=== PATIENT | male | born 1945 | race Caucasian/White ===

== ENCOUNTER 2019-01-24 13:15 | Emergency (ER) | payer MEDICARE, BC ==
[2019-01-24] MEDS ORDERED: ACETAMINOPHEN 1,000 MG/100 ML BTL IVPB ONE (13:34)
--- NOTE | 2019-01-24 13:39 | Emergency Department Record ---
History of Present Illness - General Chief Complaint: Abdominal Pain Stated Complaint: RT ABN PAIN Time Seen by Provider: 01/24/19 13:27 Source: Patient Mode of Arrival: Ambulatory Limitations: No limitations - History of Present Illness Initial Comments: 73 yo male presents with right sided pain. He states the pain was mild started 2-3 days ago over the lower right flank. It has been in the right lower back radiates to the right lower quadrant. The pain has intensified today. No fever. No hematuria. It seems to feel better moving around but no position of comfort seems to make it better. No vomiting or diarrhea. The pain remains only on the right and no pain on the left. No rash. NO fever. Normal appetite. It is sore to push on the deep lower right lumbar area. No history of the same in the past. MD Complaint: Abdominal pain, Flank pain Onset/Timin -: Days(s) Location: RLQ Radiation: None Severity: Moderate Severity scale (1-10): 8 Quality: Aching, Cramping Consistency: Constant, Intermittent Improves With: Movement Worsens With: Nothing Context: Other Associated Symptoms: Denies other symptoms - Related Data Home Medications Medication Instructions Recorded Confirmed Last Taken Aspirin [Aspirin EC] 81 mg PO DAILY 01/24/19 01/24/19 1 Day Ago ~01/23/19 Previous Rx's Medication Instructions Recorded Cephalexin [Keflex] 500 mg PO QID #28 cap 01/24/19 Hydrocodone/Acetaminophen [[place] 1 tab PO Q6H PRN #8 tab 01/24/19 5mg/325mg] Allergies Allergy/AdvReac Type Severity Reaction Status Date / Time No Known Drug Allergies Allergy Verified 01/24/19 13:24 Travel Screening - Travel/Exposure Within Last 30 Days Have you traveled within the last 30 days?: No - Travel/Exposure Within Last Year Have you traveled outside the [place] in the last year?: No - Additonal Travel Details Have you been exposed to anyone with a communicable illness?: No - Travel Symptoms Symptom Screening: None Review of Systems Constitutional: Denies: Chills, Fever, Malaise, Weakness Eyes: Denies: Eye discharge, Eye pain, Photophobia, Vision change ENT: Denies: Congestion, Throat pain Respiratory: Denies: Cough, Dyspnea Cardiovascular: Denies: Chest pain, Palpitations, Syncope Endocrine: Denies: Fatigue Gastrointestinal: Reports: Abdominal pain. Denies: Diarrhea, Nausea, Vomiting Genitourinary: Denies: Dysuria, Frequency, Hematuria Musculoskeletal: Denies: Arthralgia, Back pain, Joint swelling, Myalgia Skin: Denies: Bruising, Change in color, Rash Neurological: Denies: Headache Psychiatric: Denies: Anxiety Hematological/Lymphatic: Denies: Easy bleeding, Easy bruising Past Medical History - SOCIAL HISTORY Smoking Status: Former smoker Alcohol Use: Rare, Occasional Drug Use: None - RESPIRATORY Hx Respiratory Disorders: No - CARDIOVASCULAR Hx Cardio Disorders: No - NEURO Hx Neuro Disorders: No - GI Hx GI Disorders: Yes Hx Diverticulitis: Yes Hx of Polyps: Yes - Hx Genitourinary Disorders: No - ENDOCRINE Hx Endocrine Disorders: No - MUSCULOSKELETAL Hx Musculoskeletal Disorders: No - PSYCH Hx Psych Problems: No - HEMATOLOGY/ONCOLOGY Hx Hematology/Oncology Disorders: No Family Medical History Any Significant Family History?: Yes Physical Exam - General General Appearance: Alert, Oriented x3, Cooperative, No acute distress Limitations: No limitations - Head Head exam: Atraumatic, Normal inspection - Eye Eye exam: Normal appearance, PERRL. negative: Conjunctival injection, Scleral icterus - ENT ENT exam: Normal exam, Mucous membranes moist Ear exam: Normal external inspection Nasal Exam: Normal inspection Mouth exam: Normal external inspection - Neck Neck exam: Normal inspection - Respiratory Respiratory exam: Normal lung sounds bilaterally. negative: Respiratory distress - Cardiovascular Cardiovascular Exam: Regular rate, Normal rhythm, Normal heart sounds Peripheral Pulses: 2+: Radial (R), Radial (L) - GI/Abdominal GI/Abdominal exam: Soft, Tenderness (mildly tender in the deep RLQ, no mass, no hernia). negative: Distended, Guarding, Rebound, Rigid - Rectal Rectal exam: Deferred - exam: Deferred - Extremities Extremities exam: Normal inspection. negative: Pedal edema, Tenderness - Back Back exam: Reports: CVA tenderness (R), Full ROM, Paraspinal tenderness, Tenderness. Denies: Normal inspection, CVA tenderness (L), Rash noted, Vert ebral tenderness - Neurological Neurological exam: Alert, Normal gait, Oriented X3 - Psychiatric Psychiatric exam: Normal affect, Normal mood. negative: Agitated, Anxious - Skin Skin exam: Dry, Intact, Normal color, Warm Course Vital Signs 01/24/19 13:17 Temperature 98.1 F Pulse Rate 58 L Respiratory 18 Rate Blood Pressure 196/96 Pulse Ox 99 - Reevaluation(s) Reevaluation #1: Vitals reviewed. No fever. BP elevated. The patient is pacing in the room stating right lower back hurts radiating around 01/24/19 14:22 The CBC is normal The CMP is normal The UA is N+, LE-, WBC-, RBC-, Few bacteria 01/24/19 14:[address] scan was reviewed. No renal stones. No inflammatory changes. The appendix is not well seen but no signs of acute appendicitis. Diverticulosis without diverticulitis. 01/24/19 14:59 The results were discussed with the pain. He does not have fever, abnormal labs, or CT evidence of the cause. He does NOT have any peritoneal signs to suggest appendicitis. There is no renal stone identified. He clinically resembles colic like pain with his pacing but he can point to specific area in the right lower back that is sore to touch. I explained that there is not a definite cause of the pain with the testing. He will be treated for his pain. He was advised to return to the ER in the next 12-24 hours if the pain is not gone. I recommend returning sooner if he has vomiting, fever, or worsening pain. He does have bacteria and N+ urine. This will be cultured and he will be placed on an antibiotic until cultures return. 01/24/19 15:03 The patient reports good control of his pain. He is very reliable. He understands the need to recheck in the next 12-24 hours if not improving and sooner if fever, uncontrolled pain or vomiting or any other new concerns 01/24/19 15:16 Medical Decision Making - Lab Data Result diagrams: 01/24/19 13:31 01/24/19 13:31 Disposition Disposition: Discharge Clinical Impression: Right flank pain, Right lateral abdominal pain Disposition: Home, Self-Care Condition: (1) Good Instructions: Abdominal Pain (ED), Flank Pain (ED) Additional Instructions: Return to the ER in the next 12-24 hours if you are not steadily improving Return immediately if you have a fever, vomit, or have sudden increase in pain that is not controlled Call your doctor for a recheck of the labs, urine culture, and to review your CT scan Prescriptions: Cephalexin [Keflex] 500 mg PO QID #28 cap Hydrocodone/Acetaminophen [[place] 5mg/325mg] 1 tab PO Q6H PRN #8 tab PRN Reason: Pain - General Forms: Patient Portal Access Time of Disposition: 15:17 Quality - Quality Measures Quality Measures: N/A - Blood Pressure Screening Does Patient Have Any of the Following: No Blood Pressure Classification: Hypertensive Reading Systolic Measurement: 196 Diastolic Measurement: 96 Screening for High Blood Pressure: < Pre-Hypertensive BP, F/U Documented > [G8950] Pre-Hypertensive Follow-up Interventions: Referral to alternative/primary care provider.
[2019-01-24 13:46] LABS: ABSOLUTE NEUTROPHIL COUNT 5.39; BASO % 0.4 % (0-6); EOS % 1.3 % (0-6); GRAN % 72.4 % (47-80); HEMATOCRIT 47.4 % (42.0-52.0); HEMOGLOBIN 15.7 gm/dl (14.0-18.0); LYMPH % 18.7 % (16-45); MEAN CELL VOLUME 88.4 fl (81-97); MEAN CORPUSCULAR HEMOGLOBIN 29.3 pg (27-33); MEAN CORPUSCULAR HGB CONC 33.1 g/dl (32-36); MEAN PLATELET VOLUME 10.9 fl (7.4-10.4); MONO % 7.2 % (0-9); PLATELET COUNT 250 K/uL (130-400); RED BLOOD COUNT 5.36 M/uL (4.40-5.70); RED CELL DISTRIBUTION WIDTH 13.2 % (11.5-14.5); WHITE BLOOD COUNT W/O DIFF 7.5 K/uL (4.2-12.2)
[2019-01-24 13:51] LABS: URINE APPEARANCE CLEAR; URINE BILIRUBIN NEGATIVE (NEGATIVE); URINE BLOOD NEGATIVE (NEGATIVE); URINE COLOR YELLOW; URINE GLUCOSE (UA) NEGATIVE (NEGATIVE); URINE KETONE NEGATIVE (NEGATIVE); URINE LEUKOCYTE ESTERASE NEGATIVE (NEGATIVE); URINE NITRITE POSITIVE (NEGATIVE); URINE PROTEIN NEGATIVE (NEGATIVE); URINE UROBILINOGEN 0.2 E.U./dL (0.20 - 1.00)
[2019-01-24 13:57] LABS: BLOOD UREA NITROGEN 19 mg/dL (8-23); EST GLOMERULAR FILTRATION RATE > 60 mL/min
[2019-01-24 13:58] LABS: TOTAL PROTEIN 7.4 g/dL (6.6-8.7)
[2019-01-24 14:00] LABS: GLUCOSE,RANDOM 111 mg/dL (74-109)
[2019-01-24 14:01] LABS: URINE BACTERIA FEW; URINE EPITHELIAL CELLS NONE SEEN (FEW); URINE RBC NONE SEEN (NONE SEEN); URINE WBC NONE SEEN (0-2/hpf)
[2019-01-24 14:03] LABS: ALB/GLOB RATIO 1.7 (1.1-1.8); ALBUMIN 4.7 g/dL (4.0-5.0); ALKALINE PHOSPHATASE 53 U/L (40-129); ALT/SGPT 14 U/L (<41); AST/SGOT 21 U/L (10.0-50.0)
[2019-01-24] MEDS ORDERED: KETOROLAC 30 MG/ML VIAL IVP ONE (14:21)
[2019-01-24] MEDS ORDERED: MORPHINE SULFATE 5 MG/ML VIAL IVP ONE (14:43)
--- NOTE | 2019-01-24 14:48 | CT SCAN REPORT ---
EXAMINATION: CT Abdomen and Pelvis without IV Contrast EXAM DATE: 01/24/2019 1:59 PM TECHNIQUE: Standard protocol CT imaging of the abdomen and pelvis was performed without intravenous c ontrast. INDICATION: right flank and lower pain right pain COMPARISON: CT abdomen there are 4 2015 ENCOUNTER: Not applicable CT ABDOMEN AND PELVIS FINDINGS: Lung Bases: Included extent of the lung bases are clear. Hepatobiliary: The liver has a normal size with a smooth surface. The gallbladder appears normal wit hout evidence of gallstones or gallbladder wall thickening. Pancreas: The pancreas is normal. Spleen: The spleen is not enlarged. Adrenals: The adrenal glands are normal. Kidneys, Ureters, & Bladder: Both kidneys have a normal size and morphology. There is no hydronephro sis. No renal stones are seen. Both ureters have a normal course and caliber and the urinary bladder a normal morphology and uniform wall thickness. No ureteral or bladder calculi are identified. Gastrointestinal: The stomach and small bowel are normal with no obstruction or inflammation. The junaid endix is not well seen. No evidence of acute appendicitis. Moderate sigmoid diverticulosis. No eviden ce of acute diverticulitis. Mild diverticula are seen throughout the remainder of the colon. Reproductive Organs: Unremarkable Lymphatic System: There is no adenopathy within the abdomen or pelvis. Vasculature: Normal caliber abdominal aorta Peritoneum: No free fluid, free air, or inflammation Abdominal wall & Musculoskeletal: No suspicious bone lesions. 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 Multilevel degenerative changes are noted in the lower thoracic an d lumbar spine. Assessment of the solid organs, soft tissues, and vascular structures is overall limited on noncontra st imaging, IMPRESSION: 1. No suspicious renal or ureteral stones. 2. No evidence of hydronephrosis on either side. 3. Moderate sigmoid diverticulosis. No evidence of acute diverticulitis. 4. No free air or free fluid. Dictated by: Alvin Rhoades MD on 01/24/2019 2:34 PM. .
[2019-01-24] MEDS ORDERED: CEFTRIAXONE 1GM/50ML BAG 1 GM/50 ML BAG IVPB ONE (15:03)
[2019-01-24] MEDS ORDERED: HYDROCODONE/APAP 5/325MG TABLET PO ONE (15:12)
== END 2019-01-24 16:43 | disposition home or self-care (01) ==
LOC: ER 13:15
DX: R10.31 Right lower quadrant pain (principal); R20.0 Anesthesia of skin; M54.5 Low back pain
CPT/HCPCS: 74176; 80053; 81001; 85025; 96365; 96366; 96375; 99284; J0696; J1885

== ENCOUNTER 2019-01-26 01:27 | Emergency (ER) | payer MEDICARE, BC ==
[2019-01-26] MEDS ORDERED: 0.9 % SODIUM CHLORIDE 1000ML 500 ML IV SCH (01:45)
[2019-01-26] MEDS ORDERED: DIAZEPAM 5 MG/1 ML TUBX IVP ONE (01:45)
--- NOTE | 2019-01-26 01:51 | Emergency Department Record ---
History of Present Illness - General Chief complaint: Pain Stated complaint: RIGHT GROIN PAIN Time Seen by Provider: 01/26/19 01:44 Source: Patient Mode of Arrival: Ambulatory Limitations: No limitations - History of Present Illness Initial comments: 73 yo male presents to ED for evaluation of worsening right inguinal pain. Patient was seen and examined yesterday for similar symptoms, CT imaging of the abdomen and pelvis was negative for an acute process. Patient reports that he is unable to sit still due to his pain symptoms. Patient denies fevers, chills, or dysuria symptoms. Patient denies swelling or redness to the affected area. Patient was discharged home on Regan and Keflex for his pain symptoms that have not improved his symptoms. MD Complaint: Other Onset/Timin -: Days(s) Location: Right, Thigh History of Same: Yes Radiation: Distal Severity scale (1-10): 10 Quality: Stabbing Consistency: Constant Improves with: Nothing Worsens with: Exertion, Walking, Other Associated Symptoms: Denies other symptoms - Related Data Previous Rx's Medication Instructions Recorded Cephalexin [Keflex] 500 mg PO QID #28 cap 01/24/19 Hydrocodone/Acetaminophen [[place] 1 tab PO Q6H PRN #8 tab 01/24/19 5mg/325mg] Allergies Allergy/AdvReac Type Severity Reaction Status Date / Time No Known Drug Allergies Allergy Verified 01/24/19 13:24 Travel Screening - Travel/Exposure Within Last 30 Days Have you traveled within the last 30 days?: No - Travel Symptoms Symptom Screening: Joint & Muscle Aches Review of Systems Constitutional: Denies: Chills, Fever, Malaise, Night sweats Eyes: Denies: Eye discharge, Eye pain ENT: Denies: Congestion, Ear pain, Epistaxis Respiratory: Denies: Cough, Dyspnea Cardiovascular: Denies: Chest pain, Dyspnea on exertion Endocrine: Denies: Fatigue, Heat or cold intolerance Gastrointestinal: Denies: Abdominal pain, Nausea, Vomiting Genitourinary: Denies: Incontinence, Retention Musculoskeletal: Denies: Arthralgia, Back pain Skin: Denies: Bruising, Change in color Neurological: Denies: Abnormal gait, Confusion, Headache, Seizure Psychiatric: Denies: Anxiety Hematological/Lymphatic: Denies: Anemia, Blood Clots Past Medical History - SOCIAL HISTORY Smoking Status: Former smoker Alcohol Use: None Drug Use: None - RESPIRATORY Hx Respiratory Disorders: No - CARDIOVASCULAR Hx Cardio Disorders: No - NEURO Hx Neuro Disorders: No - GI Hx GI Disorders: Yes Hx Diverticulitis: Yes Hx of Polyps: Yes - Hx Genitourinary Disorders: No - ENDOCRINE Hx Endocrine Disorders: No - MUSCULOSKELETAL Hx Musculoskeletal Disorders: No - PSYCH Hx Psych Problems: No - HEMATOLOGY/ONCOLOGY Hx Hematology/Oncology Disorders: No Family Medical History Any Significant Family History?: No Family Hx Comment (NOT TO BE USED IN PLACE OF ITEMS BELOW): denies Physical Exam - General General Appearance: Alert, Oriented x3, Cooperative, Moderate distress (due to patient's pain symptoms) Limitations: No limitations - Head Head exam: Atraumatic, Normocephalic, Normal inspection Head exam detail: negative: Abrasion, Contusion, Gamez's sign, General tenderness, Hematoma, Laceration - Eye Eye exam: Normal appearance. negative: Conjunctival injection, Periorbital swelling, Periorbital tenderness, Scleral icterus - ENT Ear exam: negative: Auricular hematoma, Auricular trauma Nasal Exam: negative: Active bleeding, Discharge, Dried blood, Foreign body Mouth exam: negative: Drooling, Laceration, Muffled voice, Tongue elevation - Neck Neck exam: Normal inspection. negative: Meningismus, Tenderness - Respiratory Respiratory exam: Normal lung sounds bilaterally. negative: Rales, Respiratory distress, Rhonchi, Stridor - Cardiovascular Cardiovascular Exam: Regular rate, Normal rhythm, Normal heart sounds Peripheral Pulses: 3+: Dorsalis Pedis (R) - GI/Abdominal GI/Abdominal exam: Soft, Tenderness (TTP to the right inguinal region on examination, no lymphadenopathy, no swelling to suggest directe hernia.). negative: Rebound, Rigid - Rectal Rectal exam: Deferred - exam: Deferred - Extremities Extremities exam: Normal inspection. negative: Pedal edema, Tenderness - Back Back exam: Denies: CVA tenderness (R), CVA tenderness (L) - Neurological Neurological exam: Alert, Normal gait, Oriented X3 - Psychiatric Psychiatric exam: Normal affect, Normal mood - Skin Skin exam: Normal color. negative: Abrasion Type of lesion: negative: abrasion Course Vital Signs 01/26/19 01:36 Temperature 98.4 F Pulse Rate 87 Respiratory 22 Rate Blood Pressure 199/92 Pulse Ox 100 - Reevaluation(s) Reevaluation #1: 01/26/19 01:51 CT Abdomen and Pelvis: No suspicious renal or ureteral stones No evidence of hydronephrosis Moderate sigmoid diverticulosis No free fluid present Reevaluation #2: 01/26/19 02:29 Laboratory studies were reviewed and appear grossly unremarkable for an acute process. 01/26/19 02:35 Patient is back from CT imaging, pain continues at similar scale upon return. All results were discussed with the patient and his , will administer Morphine 4 mg IV and Zofran IV for continued symptoms. Reevaluation #3: 01/26/19 02:40 CT Abdomen and Pelvis: No acute abnormality Sigmoid diverticulosis without diverticulitis. Will initiate transfer for continued pain symptoms without clear etiology. Reevaluation #4: 01/26/19 03:03 Case was discussed with Dr. Antoine, will accept the patient for further evaluation. Patient and his were updated on all results and the plan for transfer for further evaluation. Medical Decision Making - Lab Data Result diagrams: 01/26/19 01:52 01/26/19 01:52 Disposition Disposition: Transfer Clinical Impression: Right inguinal pain Disposition: Acute Care Hospital Transfer Transfer To: [facility] Reason For Transfer: Right inguinal pain Accepting Physician: Arash Time Discussed w/Accepting Physician: 02:46 Condition: (2) Stable Forms: Patient Portal Access Time of Disposition: 02:46 Quality - Quality Measures Quality Measures: N/A - Blood Pressure Screening Does Patient Have Any of the Following: No Blood Pressure Classification: Hypertensive Reading Systolic Measurement: 199 Diastolic Measurement: 92 Screening for High Blood Pressure: < First Hypertensive BP, F/U Documented > [G8950] First Hypertensive Follow-up Interventions: Referral to alternative/primary care provider.
[2019-01-26 01:55] LABS: URINE APPEARANCE CLEAR; URINE BILIRUBIN NEGATIVE (NEGATIVE); URINE BLOOD SMALL (NEGATIVE); URINE COLOR YELLOW; URINE GLUCOSE (UA) NEGATIVE (NEGATIVE); URINE KETONE 15 mg/dL (NEGATIVE); URINE LEUKOCYTE ESTERASE NEGATIVE (NEGATIVE); URINE NITRITE NEGATIVE (NEGATIVE); URINE PROTEIN NEGATIVE (NEGATIVE); URINE UROBILINOGEN 0.2 E.U./dL (0.20 - 1.00)
[2019-01-26 02:01] LABS: ABSOLUTE NEUTROPHIL COUNT 5.95; BASO % 0.4 % (0-6); EOS % 0.8 % (0-6); GRAN % 74.5 % (47-80); HEMATOCRIT 47.9 % (42.0-52.0); HEMOGLOBIN 15.8 gm/dl (14.0-18.0); LYMPH % 15.7 % (16-45); MEAN CELL VOLUME 88.2 fl (81-97); MEAN CORPUSCULAR HEMOGLOBIN 29.1 pg (27-33); MEAN PLATELET VOLUME 10.6 fl (7.4-10.4); MONO % 8.6 % (0-9); PLATELET COUNT 226 K/uL (130-400); RED BLOOD COUNT 5.43 M/uL (4.40-5.70); RED CELL DISTRIBUTION WIDTH 12.8 % (11.5-14.5)
[2019-01-26 02:10] LABS: BLOOD UREA NITROGEN 17 mg/dL (8-23)
[2019-01-26 02:11] LABS: CREATININE 0.9 mg/dL (0.7-1.2); EST GLOMERULAR FILTRATION RATE > 60 mL/min; TOTAL PROTEIN 7.2 g/dL (6.6-8.7)
[2019-01-26 02:13] LABS: GLUCOSE,RANDOM 123 mg/dL (74-109)
[2019-01-26 02:16] LABS: ALB/GLOB RATIO 1.9 (1.1-1.8); ALBUMIN 4.7 g/dL (4.0-5.0); ALKALINE PHOSPHATASE 48 U/L (40-129); ALT/SGPT 13 U/L (<41); AST/SGOT 21 U/L (10.0-50.0); C-REACTIVE PROTEIN 0.04 mg/dL (<0.5)
[2019-01-26 02:18] LABS: URINE BACTERIA NONE SEEN; URINE EPITHELIAL CELLS NONE SEEN (FEW); URINE RBC 0 - 2 (NONE SEEN); URINE WBC NONE SEEN (0-2/hpf)
[2019-01-26] MEDS ORDERED: ONDANSETRON HCL IV 4 MG/2 ML VIAL IVP ONE (02:34)
[2019-01-26] MEDS ORDERED: MORPHINE SULFATE 5 MG/ML VIAL IVP ONE (02:34)
--- NOTE | 2019-01-26 02:39 | CT SCAN REPORT ---
EXAMINATION: CT of the Pelvis with Intravenous Contrast. EXAM DATE: 01/26/2019 2:27 AM TECHNIQUE: A standard CT pelvis protocol was performed with intravenous contrast. Sagittal and sin l images were reconstructed. IV Contrast: The type and amount of contrast is recorded within the medical record. INDICATION: pain right inguinal region COMPARISON: 04/11/2015 ENCOUNTER: Not applicable FINDINGS: Ureters & Bladder: Both distal ureters have a normal caliber and the urinary bladder is unremarkable . Gastrointestinal: Sigmoid colon diverticulosis is noted without CT evidence for diverticulitis. Incl uded large and small bowel segments in the pelvis are otherwise unremarkable. The appendix is not divine ntified. Reproductive Organs: Unremarkable Lymphatic System: There is no adenopathy within the pelvis. Vasculature: The iliac arteries have a normal caliber. Peritoneum: There is no free fluid within the pelvis. Retroperitoneum: There is no retroperitoneal mass, hemorrhage, or hematoma. Abdominal Wall & Musculoskeletal: No suspicious bone lesions. 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 3-D imaging: Not performed. IMPRESSION: 1. No evidence of significant acute abnormalities. 2. Sigmoid colon diverticula without CT evidence of acute diverticulitis. Dictated by: Chantel Pacheco MD on 01/26/2019 2:27 AM. .
[2019-01-26 03:01] LABS: ERYTHROCYTE SEDIMENTATION RATE 2 mm/hr (0-20)
[2019-01-26] MEDS ORDERED: KETOROLAC 30 MG/ML VIAL IVP ONE (03:20)
== END 2019-01-26 03:37 | disposition short-term general hospital (02) ==
LOC: ER 01:27
DX: R10.31 Right lower quadrant pain (principal); K57.30 Diverticulosis of large intestine without perforation or abscess without bleeding; M79.651 Pain in right thigh; Z87.891 Personal history of nicotine dependence
CPT/HCPCS: 72193; 80053; 81001; 85025; 85651; 86140; 96374; 96375; 99285; J1885; J2405; J3360; J7030